=== PATIENT | male | born 1955 | race Two or more races ===

== ENCOUNTER 2016-07-04 10:06 | Day surgery (SDC) | payer OTHER ==
[~2016-07-04] VITALS: Ht 165.1 cm; Wt 80.6 kg
[2016-07-04 11:06] VITALS: Ht 165.1 cm; Wt 80.6 kg
[2016-07-04] MEDS ORDERED: GABA300C16 PO (11:17)
[2016-07-04] MEDS ORDERED: ACET500C5 PO (11:17)
[2016-07-04] MEDS ORDERED: RANI150T9 PO (11:17)
[2016-07-04] MEDS ORDERED: OMEP40CA6 PO (11:17)
[2016-07-04 11:39] VITALS: BP 107/63; PULSE 81; RESP 26
[2016-07-04] MEDS ORDERED: PROPOFOL 40 ML ONE (11:43)
--- NOTE | 2016-07-04 12:37 | GILP ---
DATE OF PROCEDURE: NAME OF PROCEDURES: 1. Esophagogastroduodenoscopy and biopsy. 2. Colonoscopy. SURGEON: Manav Melgoza MD PREOPERATIVE DIAGNOSES: 1. Gastroesophageal reflux disease. 2. Screening colonoscopy. POSTOPERATIVE DIAGNOSES: 1. Hiatal hernia. 2. Reflux esophagitis. 3. Gastritis with erosions. 4. Gastric mucosal biopsies were taken for Helicobacter pylori test. 5. Colonoscopy all the way to the cecum. 6. Internal hemorrhoids. 7. No colon neoplasm was identified. INDICATION FOR THE PROCEDURE: Mr. Star Fernandez is a 61-year-old male patient who had chronic heartburn, not responding to therapy. He also needed screening colonoscopy. The procedures and possible complications are well explained to the patient, he understood and conse nted to the procedures. DESCRIPTION OF PROCEDURE: Under the influence of anesthesia, the gastroscope was carefully introduc ed into the esophagus and under direct vision, it was advanced to the stomach and through the pyloru s into the duodenal bulb and descending duodenum. FINDINGS: ESOPHAGUS: The patient had hiatal hernia with reflux esophagitis. STOMACH: He had gastritis with erosions. Gastric mucosal biopsies were taken for H pylori test. DUODENUM: Normal. The colonoscope was carefully introduced in the rectum and under direct vision, it was advanced all the way to the cecum. FINDINGS: The patient had internal hemorrhoids. No colon neoplasm was identified. He tolerated the procedures very well and there was no complication from the procedures. At the end of the procedures, he was awake with stable vital signs, and he was discharged home to the care of his family. IMPRESSION: Please see postoperative diagnoses. PLAN: 1. Continue omeprazole and Zantac. 2. Await H pylori test report. 3. Next screening colonoscopy in 10 years. Dictated By: MANAV KURTZ/MARAL Conf#: [id number] DID#: [id number]
[2016-07-04 12:42] VITALS: BP 97/66; RESP 20
== END 2016-07-04 15:25 | disposition home or self-care (01) ==
LOC: GIL 10:06
PROVIDERS: ATTEND Internal Medicine Gastroenterology
DX: Z12.11 Encounter for screening for malignant neoplasm of colon (principal); D12.3 Benign neoplasm of transverse colon; K64.8 Other hemorrhoids; K20.9 Esophagitis, unspecified; K44.9 Diaphragmatic hernia without obstruction or gangrene; K29.70 Gastritis, unspecified, without bleeding
CPT/HCPCS: 43239; 45378; 87081; 88305; Z7610